=== PATIENT | female | born 1965 | race Caucasian/White ===

== ENCOUNTER 2022-09-29 13:31 | Observation (INO) | payer BC ==
[~2022-09-29] VITALS: Ht 162.6 cm; Wt 59.0 kg
[2022-09-29] VITALS (19 sets, daily range): BP systolic 114–167; BP diastolic 60–80
[2022-09-29 14:38] LABS: BASO% 0.7 % (0-3); EOS% 0.9 % (0-8); HEMATOCRIT 40.3 % (37.0-47.0); HEMOGLOBIN 13.6 g/dl (12.0-16.0); LYMPH% 31.4 % (15-41); MEAN CELL VOLUME 93.5 fL CALC (80.0-100.0); MEAN CORPUSCULAR HGB 31.6 pG CALC (26.0-32.0); MEAN CORPUSCULAR HGB CONC 33.7 g/dL CAL (32.0-36.0); MONO% 6.6 % (2-13); NEUT# 3.3 thou/uL (2.00-7.15); NEUT% 60.4 % (42-76); RED BLOOD COUNT 4.31 mill/uL (4.20-5.60); RED CELL DISTRI WIDTH 12.6 % (11.5-15.5)
[2022-09-29 14:51] LABS: ALBUMIN 4.8 g/dL (3.2-5.0); ALKALINE PHOSPHATASE 70 u/l (38-126); ANION GAP 12 (6-22 (CALC)); BILIRUBIN, TOTAL 0.3 mg/dL (0.0-1.4); BUN 11 mg/dL (7-17); BUN/CREATININE RATIO 18 (12-20 (CALC)); CARBON DIOXIDE 27 mmol/l (22-30); CHLORIDE 105 mmol/l (95-108); CREATININE 0.6 mg/dL (0.5-1.0); GFR FOR AFR.AMER. > 60 ML/MIN (>=60 (CALC)); GFR OTHER RACES > 60 ML/MIN (>=60 (CALC)); POTASSIUM 4.1 mmol/l (3.5-5.1); SGOT/AST 30 u/l (14-36); SODIUM 140 mmol/l (137-146); TOTAL PROTEIN 7.7 g/dL (6.3-8.2)
[2022-09-30 04:53] VITALS: BP 112/68
[2022-09-30 07:02] VITALS: BP 120/67
[2022-09-30 08:00] VITALS: BP 120/67
[2022-09-30 09:23] LABS: MAGNESIUM 2.1 mg/dL (1.6-2.3)
[2022-09-30 11:03] VITALS: BP 133/62
== END 2022-09-30 13:02 | disposition home or self-care (01) | DRG 313 ==
LOC: ED 13:31 → ED-I 15:51 → ED 15:51 → MS2 16:04
PROVIDERS: Family Medicine; ADMIT Internal Medicine; ATTEND Internal Medicine
DX: R07.9 Chest pain, unspecified (principal); K82.8 Other specified diseases of gallbladder; L30.9 Dermatitis, unspecified
CPT/HCPCS: G0378; J1650